=== PATIENT | female | born 1945 | race Caucasian/White ===

== ENCOUNTER 2020-03-21 13:27 | Emergency (ER) | payer BC ==
[2020-03-21 15:24] VITALS: BP 110/66; PULSE 77; TEMP 98; BMI 22.5
[2020-03-21] MEDS ORDERED: CARBIDOPA/LEVODOPA 25/100 TABLET (FP) PO ONE ×2 (16:04→18:24)
[2020-03-21] MEDS ORDERED: CARBIDOPA/LEVODOPA 25/100 TABLET (FP) ONE ×2 (16:06→18:25)
[2020-03-21 16:19] LABS: BASO % 1.9 % (0-2.0); EOS % 1.4 % (0-4.5); HEMOGLOBIN 14.3 GM/dL (10.7-15.3); LYMPH % 37.3 % (8-40); MCH 30.2 pg (25.7-33.7); MCHC 33.4 g/dl (32.0-36.0); MEAN CELL VOLUME 90.6 fl (80-96); MEAN PLT VOLUME 9.4 fl (7.5-11.1); MONO % 5.1 % (3.8-10.2); NEUT % 54.3 % (42.8-82.8); PLATELET COUNT 216 K/MM3 (134-434); RBC 4.74 M/mm3 (3.60-5.2); RDW 14.3 % (11.6-15.6); WHITE BLOOD COUNT 7.2 K/mm3 (4.0-10.0)
[2020-03-21 16:48] LABS: POTASSIUM 4.7 mmol/L (3.5-5.1)
[2020-03-21 16:50] LABS: CALCIUM 9.4 mg/dL (8.5-10.1)
[2020-03-21 16:54] LABS: CREATININE 0.7 mg/dL (0.55-1.3)
[2020-03-21 16:55] LABS: BILIRUBIN,TOTAL 0.3 mg/dL (0.2-1); TOT PROT 7.6 g/dl (6.4-8.2)
[2020-03-21 17:11] LABS: PLATELET ESTIMATE ADEQUATE
[2020-03-21 17:14] LABS: EPI CELLS 3 /uL (0-25.1); HYALINE CASTS 0 /uL (0-3.1); URINE APPEARANCE CLEAR; URINE BACTERIA 97 /uL (0-1359); URINE BILIRUBIN NEGATIVE (NEGATIVE); URINE COLOR YELLOW; URINE GLUCOSE (UA) NEGATIVE (NEGATIVE); URINE KETONE NEGATIVE (NEGATIVE); URINE LEUK ESTERASE TRACE (NEGATIVE); URINE NITRITE NEGATIVE (NEGATIVE); URINE PROTEIN NEGATIVE (NEGATIVE); URINE RBC 14 /uL (0-23.9); URINE UROBILINOGEN 0.2 mg/dL (0.2-1.0); URINE WBC 11 /uL (0-25.8)
== END 2020-03-21 18:44 | disposition home or self-care (01) ==
LOC: JER 13:27
DX: Z11.52 Encounter for screening for COVID-19 (principal); J06.9 Acute upper respiratory infection, unspecified
CPT/HCPCS: 36415; 71046-TC-FY; 80053; 81003; 83690; 85025; 87086; 99284-25; C9803; U0003

== ENCOUNTER 2020-12-26 22:02 | Emergency (ER) | payer BC ==
[2020-12-26 22:21] VITALS: BP 140/66; PULSE 80; TEMP 98.6; BMI 32.2
[2020-12-26] MEDS ORDERED: ACETAMINOPHEN 500 MG TABLET (FP) PO ONE (23:26)
[2020-12-27] MEDS ORDERED: ACETAMINOPHEN 325 MG TABLET (FP) ONE (00:16)
== END 2020-12-27 00:20 | disposition home or self-care (01) ==
LOC: JER 22:02
DX: H92.02 Otalgia, left ear (principal); H61.22 Impacted cerumen, left ear
CPT/HCPCS: 99283-25